=== PATIENT | female | born 2000 | race Caucasian/White ===

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

== ENCOUNTER 2022-04-08 22:03 | Emergency (ER) | payer MEDICAID, OTHER ==
[2022-04-08] MEDS ORDERED: Ketorolac 30 MG/ML SDV IM ONE (23:36)
[2022-04-09] MEDS ORDERED: cefTRIAXone 1 GM in Sodium Chloride 0.9% 50 ML IV ONE (00:11)
[2022-04-09] MEDS ORDERED: Sodium Chloride 0.9% 10 ML Syringe FLUSH PRN (00:11)
[2022-04-09] MEDS ORDERED: Ondansetron 4 MG/2 ML SDV IVPUSH ONE (00:18)
== END 2022-04-09 02:04 | disposition home or self-care (01) ==
LOC: JP.ED 22:03
DX: J03.80 Acute tonsillitis due to other specified organisms (principal); B96.89 Other specified bacterial agents as the cause of diseases classified elsewhere; E66.9 Obesity, unspecified; Z68.32 Body mass index [BMI] 32.0-32.9, adult
CPT/HCPCS: 36415; 80048; 85025; 86140; 87081; 87880; 96365; 96372; 96375; 99283; J0696; J1885; J2405; J3490

== ENCOUNTER 2022-10-24 16:19 | Emergency (ER) | payer MEDICAID ==
[2022-10-24] MEDS ORDERED: Aspirin 81 MG Tab.Chew PO ONE (16:59)
[2022-10-24] MEDS ORDERED: Ketorolac 30 MG/ML SDV IM ONE (17:00)
[2022-10-24 17:40] LABS: ESTIMATED GFR 127 mL/min (>60)
[2022-10-24 17:43] LABS: TROPONIN I HIGH SENSITIVITY < 4.0 pg/mL (<=60.3)
[2022-10-24] MEDS ORDERED: LORazepam 2 MG/ML SDV IM ONE (17:48)
== END 2022-10-24 18:37 | disposition home or self-care (01) ==
LOC: JP.ED 16:19
DX: R07.89 Other chest pain (principal); E66.9 Obesity, unspecified; Z68.30 Body mass index [BMI] 30.0-30.9, adult; Z86.16 Personal history of COVID-19
CPT/HCPCS: 36415; 71046; 80048; 84484; 85025; 93005; 96372; 99285; A9270; J1885; J2060

== ENCOUNTER 2023-04-23 20:37 | Emergency (ER) | payer MEDICAID | END 2023-04-23 22:12 | disposition home or self-care (01) | LOC: JP.ED 20:37 | DX: M62.838 Other muscle spasm (principal); E66.9 Obesity, unspecified; F17.210 Nicotine dependence, cigarettes, uncomplicated; Z68.30 Body mass index [BMI] 30.0-30.9, adult | CPT/HCPCS: 99283 ==

== ENCOUNTER 2025-01-04 07:29 | Emergency (ER) | payer MEDICAID, OTHER ==
[2025-01-04] MEDS: diphenhydrAMINE 50 MG/ML SDV IM ONE (08:11)
[2025-01-04] MEDS: droPERidol 5 MG/2 ML SDV IM ONE (08:12)
== END 2025-01-04 09:27 | disposition home or self-care (01) ==
LOC: JP.ED 07:29
DX: M54.6 Pain in thoracic spine (principal); E66.9 Obesity, unspecified; Z68.36 Body mass index [BMI] 36.0-36.9, adult; Z86.16 Personal history of COVID-19; Z79.899 Other long term (current) drug therapy
CPT/HCPCS: 96372; 99283; J1200; J1790